=== PATIENT | male | born 1975 ===

== ENCOUNTER 2017-06-02 00:58 | Emergency (ER) | payer MEDICAID ==
[2017-06-02 01:13] VITALS: TEMP 97.4
[2017-06-02] MEDS ORDERED: Albuterol-Ipratrop 3 mg / 0.5 (3 ml) UD IH STA (02:12)
[2017-06-02] MEDS ORDERED: Albuterol-Ipratrop 3 mg / 0.5 (3 ml) UD ONE (02:26)
[2017-06-02 02:42] LABS: BASO # 0.1 K/uL (0.0-0.2); BASO % 0.6 % (0.0-2.0); EOS # 0.3 K/uL (0.0-0.7); EOS % 2.6 % (0.0-4.0); HEMOGLOBIN 14.6 g/dL (12.0-18.0); LYMPH # 2.2 K/uL (1.0-4.3); LYMPH % 21.8 % (20.0-40.0); MEAN CELL VOLUME 78.1 fl (80.0-94.0); MEAN CORPUSCULAR HEMOGLOBIN 26.6 pg (27.0-31.0); MEAN PLATELET VOLUME 8.8 fl (7.2-11.7); MONO # 0.7 K/uL (0.0-0.8); MONO % 7.4 % (0.0-10.0); NEUT # 6.8 K/uL (1.8-7.0); NEUT % 67.6 % (50.0-75.0); NRBC % 0.4 % (0.0-0.0); RBC 5.51 Mil/uL (4.40-5.90); RED CELL DISTRIBUTION WIDTH 14.6 % (11.5-14.5); WHITE BLOOD COUNT 10.1 K/uL (4.8-10.8)
[2017-06-02 02:52] LABS: ALB/GLOB RATIO 1.3 (1.0-2.1); ALBUMIN 4.4 g/dL (3.5-5.0); ALT/SGPT 51 U/L (21-72); AST/SGOT 27 U/L (17-59); BLOOD UREA NITROGEN 12 mg/dl (9-20); CALCIUM 9.1 mg/dL (8.4-10.2); GFR AFRICAN-AMERICAN > 60; GFR NON-AFRICAN AMERICAN > 60
[2017-06-02 03:04] LABS: B-TYPE NATRIURETIC PEPTIDE 36.2 pg/ml (0-450)
--- NOTE | 2017-06-02 04:08 | ED PDOC ---
HPI: Chest Pain Time Seen by Provider: 06/02/17 01:34 Chief Complaint (Nursing): Chest Pain Chief Complaint (Provider): chest pain History Per: Patient History/Exam Limitations: no limitations Onset/Duration Of Symptoms: Days (4), Waxing/Waning Current Symptoms Are (Timing): Still Present Additional Complaint(s): 41 y/o male presents for evaluation of intermittent left-sided chest pain x 4 days. Associated nasal congestion, sore throat, nonproductive cough. Patient states pain worse with coughing, and is associated with shortness of breath when present. Denies fever, nausea/vomiting, palpitations, abdominal pain, leg pain/swelling, recent travel, sick contacts. Past Medical History Reviewed: Historical Data, Nursing Documentation, Vital Signs Vital Signs: Last Vital Signs Temp 97.4 F L 06/02/17 01:09 Pulse 80 06/02/17 01:09 Resp 17 06/02/17 01:09 BP 131/80 06/02/17 01:09 Pulse Ox 97 06/02/17 01:09 - Medical History PMH: No Chronic Diseases - Surgical History Surgical History: No Surg Hx - Family History Family History: States: No Known Family Hx - Living Arrangements Living Arrangements: With Family - Social History Current smoker - smoking cessation education provided: No - Home Medications Home Medications: Ambulatory Orders Medication Instructions Recorded DiphenhydrAMINE [Benadryl] 50 mg PO Q6 #10 cap 04/06/14 Prednisone 20 mg PO DAILY #5 tab 04/06/14 Albuterol HFA [Ventolin HFA 90 1 puff IH Q4 PRN #1 inh 06/02/17 mcg/actuation (8 g)] Fluticasone Nasal [Flonase] 1 actuation NS BID #1 bottle 06/02/17 Naproxen [Naprosyn] 500 mg PO Q12 PRN #20 tablet 06/02/17 Promethazine DM [Phenergan DM 5 ml PO Q6 PRN #1 bottle 06/02/17 Syrup] - Allergies Allergies/Adverse Reactions: Allergies Allergy/AdvReac Type Severity Reaction Status Date / Time No Known Allergies Allergy Verified 06/02/17 01:13 REBECCA Risk Score for UA/NSTEMI - REBECCA Risk Score Age > 64: NO 3 or more CAD Risk Factors: NO Known CAD (Stenosis greater than 50%): NO Aspirin use in past 7 days: NO Severe Angina: NO EKG ST changes greater than 0.5mm: NO Positive Cardiac Marker: NO REBECCA Score: 0 Risk %: 5% Curb-65 Severity Score - CURB-65 Severity Score Confusion: No Bun >19mg/dl (>7mmol/L): No Respiratory Rate greater than/equal to 30: No Systolic BP <90 or Diastolic BP less than/equal 60mmHg: No Age >64: No Curb-65 Score: 0 Percentage 30-day mortality: 0.6% Wells Criteria for PE - Wells Criteria for Pulmonary Embolism Clinical Signs and Symptoms of DVT: No P.E is #1 Diagnosis, or Equally Likely: No Heart Rate >100: No Immobilization at least 3 days;Surgery previous 4 weeks: No Previous, objectively diagnosed PE or DVT: No Hemoptysis: No Malignancy w/treatment within 6 months, or palliative: No Total Score: 0 Review of Systems ROS Statement: Except As Marked, All Systems Reviewed And Found Negative ENT: Positive for: Nose Congestion Cardiovascular: Positive for: Chest Pain Respiratory: Positive for: Cough, Shortness of Breath Physical Exam - Reviewed Nursing Documentation Reviewed: Yes Vital Signs Reviewed: Yes - Physical Exam Appears: Positive for: Well, Non-toxic, No Acute Distress Head Exam: Positive for: ATRAUMATIC, NORMAL INSPECTION, NORMOCEPHALIC Skin: Positive for: Normal Color Eye Exam: Positive for: Normal appearance ENT: Positive for: Nasal Congestion, Pharyngeal Erythema Cardiovascular/Chest: Positive for: Regular Rate, Rhythm. Negative for: Chest Non Tender (tender to palpate left anterior chest wall) Respiratory: Positive for: Normal Breath Sounds Gastrointestinal/Abdominal: Positive for: Normal Exam Back: Positive for: Normal Inspection Extremity: Positive for: Normal ROM Neurologic/Psych: Positive for: Alert, Oriented - Laboratory Results Result Diagrams: 06/02/17 02:38 06/02/17 02:38 - ECG ECG: Positive for: Viewed By Me (reviewed by ED attending) ECG Rhythm: Positive for: Sinus Rhythm O2 Sat by Pulse Oximetry: 97 Pulse Ox Interpretation: Normal - Radiology X-Ray: Viewed By Me X-Ray Interpretation: No Acute Disease - Progress ED Course And Treament: labs, ekg, chest xray, duoneb, iv toradol On re-eval, patient states he is feeling better. Patient educated on findings, discharged with rx Flonase, Albuterol, Promethazine DM, naproxen. Advised follow up PMD 2-3 days. Return precautions given. Disposition - Clinical Impression Clinical Impression: Atypical chest pain, URI (upper respiratory infection) - Patient ED Disposition Is Patient to be Admitted: No Counseled Patient/Family Regarding: Studies Performed, Diagnosis, Need For Followup, Rx Given - Disposition Referrals: Luis Felipe Wellington MD [Primary Care Provider] - Disposition: Routine/Home Disposition Time: 04:11 Condition: IMPROVED Prescriptions: Albuterol HFA [Ventolin HFA 90 mcg/actuation (8 g)] 1 puff IH Q4 PRN #1 inh PRN Reason: Wheezing Fluticasone Nasal [Flonase] 1 actuation NS BID #1 bottle Naproxen [Naprosyn] 500 mg PO Q12 PRN #20 tablet PRN Reason: Pain, Moderate (4-7) Promethazine DM [Phenergan DM Syrup] 5 ml PO Q6 PRN #1 bottle PRN Reason: Cough Instructions: Chest Pain That Is Not Caused by the Heart (DC), Viral Upper Respiratory Infection, Adult (DC) Forms: [employer] (K[place]akh) Print Language: SWAZI
[2017-06-02 04:57] VITALS: BP 135/77; PULSE 71; RESP 16; O2SAT 98
--- NOTE | 2017-06-02 09:22 | RAD ---
HISTORY: Cough; the, chest pain COMPARISON: No prior. TECHNIQUE: Chest PA and lateral FINDINGS: LUNGS: No active pulmonary disease. PLEURA: No significant pleural effusion identified. No pneumothorax apparent. CARDIOVASCULAR: Normal. OSSEOUS STRUCTURES: No significant abnormalities. VISUALIZED UPPER ABDOMEN: Normal. OTHER FINDINGS: None. IMPRESSION: No active disease.
--- NOTE | 2017-06-03 18:18 | CARD ---
APPROVED REPORT EKG Measurement Heart [id number] <Conclusion> Normal sinus rhythm ST elevation, probably due to early repolarization Borderline ECG
== END 2017-06-02 04:40 | disposition home or self-care (01) ==
LOC: H.ER 00:58
DX: R07.89 Other chest pain (principal); J06.9 Acute upper respiratory infection, unspecified
CPT/HCPCS: 71046; 80053; 83880; 84484; 85025; 87070; 87430; 87804; 93005; 94640; 96374; 99284; J1885